=== PATIENT | male | born 1965 | race Caucasian/White ===

== ENCOUNTER 2016-12-10 18:39 | Observation (INO) | payer SELFPAY ==
--- NOTE | 2016-12-10 18:51 | EDM.PDOC ---
<Brittani Wang - Last Filed: 12/10/16 20:53> ED HPI GENERAL MEDICAL PROBLEM - General Chief Complaint: Chest Pain Stated Complaint: CHEST PAIN Time Seen by Provider: 12/10/16 18:48 Source of Information: Reports: Patient History Limitations: Reports: No Limitations - History of Present Illness INITIAL COMMENTS - FREE TEXT/NARRATIVE: HISTORY AND PHYSICAL: []51-year-old presenting with chest pain History of Present Illness: []Patient relates to having fallen down stairs 3 days ago and complaining of low back pain right hip pain Chest pain started 3 days ago Patient was hospitalized 10 years ago with a "bleeding ulcer" he relates having hiccups for the last 4 days and has not been able to eat Patient has been out of his lisinopril for several days and his girlfriend is on the same medication so she gave him her medication. Review of Systems: As per history of present illness and below otherwise all systems reviewed and negative. Past medical history: As per history of present illness and as reviewed below otherwise noncontributory. Surgical history: As per history of present illness and as reviewed below otherwise noncontributory. Social history: No reported history of drug or alcohol abuse. Family history: As per history of present illness and as reviewed below otherwise noncontributory. Physical exam: Alert and oriented man, denies any loss of consciousness from his fall. Answering questions in full sentences HEENT: Atraumatic, normocehpalic, pupils reactive, negative for conjunctival pallor or scleral icterus, mucous membranes moist, throat clear, neck supple, nontender, trachea midline. Lungs: Clear to auscultation, breath sounds equal bilaterally, chest tender multiple small areas of ecchymosis are present across his chest. Heart: S1S2, regular, negative for clicks, rubs, or JVD. Abdomen: Soft, nondistended, tender increased on his epigastric area. Negative for masses or hepatossplenmegaly. Negative for costovertebral tenderness. Pelvis: Stable nontender. Genitourinary: Deferred. Rectal: Deferred Extremities: Atraumatic, negative for cords or calf pain. Neurovascular unremarkable. Neuro: Awake, alert, oriented. Cranial nerves II through XII unremarkable. Cerebellum unremarkable. Motor and sensory unremarkable throughout. Exam nonfocal. Blood pressure was improved with the Nitrostat that was given Abdominal pain improved with the GI cocktail No acute fractures were noted/ small pulmonary nodules that look to be not significant/will need to be reevaluated at some point for stability Discussed case with Dr. Su who is agreeable for observation. We'll place on telemetry rule out cardiac involvement for chest pain. Diagnostics: [cbc cmp ua ekg troponin amylase and lipase CTA chest CT abdomen and pelvis] Therapeutics: [nitrostat asa] Morphine Impression: [chest pain- resolved Diverticulosis without acute diverticulitis Abdominal pain fatty infiltration of his liver Nonspecific pulmonary nodules ] Plan: []refer for observation Definitive disposition and diagnosis as appropriate pending reevaluation and review of above. Onset: Sudden Duration: Day(s): (3 days for chest pain fell down stairs (15-20) 5 days ago.) Location: Reports: Chest chest Pain Score (Numeric/FACES): 8 - Related Data Allergies Allergy/AdvReac Type Severity Reaction Status Date / Time No Known Allergies Allergy Verified 12/10/16 18:43 Home Meds: Home Meds ALPRAZolam [Alprazolam ER] 1 mg PO BID 12/10/16 [History] Lisinopril/Hydrochlorothiazide [Lisinopril-Hctz 20-25 mg Tab] 1 tab PO DAILY 01/18 [History] ED ROS GENERAL - Review of Systems Review Of Systems: ROS reveals no pertinent complaints other than HPI. ED EXAM, GENERAL - Physical Exam Exam: See Below (see dictation) Course - Vital Signs Last Recorded V/S: Last Vital Signs Temp 36.6 C 12/10/16 21:00 Pulse 83 12/10/16 21:00 Resp 18 12/10/16 21:00 BP 144/86 H 12/10/16 21:00 Pulse Ox 99 12/10/16 21:00 - Orders/Labs/Meds Orders: Active Orders 24 hr Category Date Time Status Patient Status [ADT] Stat ADT 12/10/16 21:04 Active Cardiac Monitoring [RC] . DIRECTED Care 12/10/16 18:57 Active EKG Documentation Completion [RC] STAT Care 12/10/16 18:57 Active EKG Documentation Completion [RC] STAT Care 12/10/16 19:14 Active Oxygen Therapy [RC] ASDIRECTED Care 12/10/16 18:57 Active Pulse Oximetry [RC] ASDIRECTED Care 12/10/16 18:57 Active Abdomen Pelvis w Cont [CT] Stat Exams 12/10/16 19:25 Taken Ang Chest [CT] Stat Exams 12/10/16 19:25 Taken Chest 1V Frontal [CR] Stat Exams 12/10/16 18:45 Taken Pantoprazole [ProTONIX IV] 80 mg Med 12/10/16 20:45 Active Sodium Chloride 0.9% [Normal Saline] 100 ml IV .Continuous Sodium Chloride 0.9% [Saline Flush] Med 12/10/16 18:57 Active 10 ml FLUSH ASDIRECTED PRN Sodium Chloride 0.9% [Saline Flush] Med 12/10/16 18:57 Active 2.5 ml FLUSH ASDIRECTED PRN Saline Lock Insert [OM.PC] Stat Oth 12/10/16 18:57 Ordered Medication Orders Pantoprazole Sodium 80 mg/ (Sodium Chloride) 100 mls @ 10 mls/hr IV .Continuous COLLEEN Last Admin: 12/10/16 21:03 Dose: 10 mls/hr Sodium Chloride (Saline Flush) 10 ml FLUSH ASDIRECTED PRN PRN Reason: Keep Vein Open Last Admin: 12/10/16 18:50 Dose: 10 ml Sodium Chloride (Saline Flush) 2.5 ml FLUSH ASDIRECTED PRN PRN Reason: Keep Vein Open Last Admin: 12/10/16 18:51 Dose: 2.5 ml Labs: Laboratory Tests 12/10/16 12/10/16 12/10/16 Range/Units 18:50 18:50 18:50 WBC 11.18 H (4.0-11.0) K/uL RBC 4.83 (4.50-5.90) M/uL Hgb 15.9 (13.0-17.0) g/dL Hct 45.3 (38.0-50.0) % MCV 93.8 (80.0-98.0) fL MCH 32.9 H (27.0-32.0) pg MCHC 35.1 (31.0-37.0) g/dL RDW Std Deviation 43.0 (28.0-62.0) fl RDW Coeff of Joseline 13 (11.0-15.0) % Plt Count 197 (150-400) K/uL MPV 10.60 (7.40-12.00) fL Neut % (Auto) 79.8 (48.0-80.0) % Lymph % (Auto) 13.6 L (16.0-40.0) % Amelia % (Auto) 6.4 (0.0-15.0) % Eos % (Auto) 0.0 (0.0-7.0) % Baso % (Auto) 0.2 (0.0-1.5) % Neut # (Auto) 8.9 H (1.4-5.7) K/uL Lymph # (Auto) 1.5 (0.6-2.4) K/uL Amelia # (Auto) 0.7 (0.0-0.8) K/uL Eos # (Auto) 0.0 (0.0-0.7) K/uL Baso # (Auto) 0.0 (0.0-0.1) K/uL Nucleated RBC % 0.0 /100WBC Nucleated RBCs # 0 K/uL INR 1.05 (0.86-1.11) Sodium 135 L (136-146) mmol/L Potassium 3.3 L (3.5-5.1) mmol/L Chloride 95 L (98-110) mmol/L Carbon Dioxide 24 (21-31) mmol/L BUN 20 (6.0-23.0) mg/dL Creatinine 1.0 (0.6-1.5) mg/dL Est Cr Clr Drug Dosing 93.08 mL/min Estimated GFR (MDRD) > 60.0 ml/min Glucose 113 H (60-110) mg/dL Calcium 9.7 (8.8-10.8) mg/dL Total Bilirubin 2.0 H (0.1-1.5) mg/dL AST 96 H (5-40) IU/L ALT 135 H (8-54) IU/L Alkaline Phosphatase 76 (40-150) Troponin I (0.0-0.29) NG/ML Total Protein 7.4 (6.0-8.0) g/dL Albumin 4.1 (3.5-5.0) g/dL Globulin 3.3 (2.0-3.5) g/dL Albumin/Globulin Ratio 1.2 L (1.3-2.8) Amylase (10-90) U/L Lipase (7-80) U/L Urine Color Urine Appearance Urine pH (5.0-8.0) Ur Specific Savage (1.001-1.035) Urine Protein (NEGATIVE) mg/dL Urine Glucose (UA) (NEGATIVE) mg/dL Urine Ketones (NEGATIVE) mg/dL Urine Occult Blood (NEGATIVE) Urine Nitrite (NEGATIVE) Urine Bilirubin (NEGATIVE) Urine Ictotest Urine Urobilinogen (<2.0) EU/dL Ur Leukocyte Esterase (NEGATIVE) Urine RBC (0-2/HPF) Urine WBC (0-5/HPF) Ur Epithelial Cells (NONE-FEW) Urine Bacteria (NEGATIVE) 12/10/16 12/10/16 12/10/16 Range/Units 18:50 18:50 20:10 WBC (4.0-11.0) K/uL RBC (4.50-5.90) M/uL Hgb (13.0-17.0) g/dL Hct (38.0-50.0) % MCV (80.0-98.0) fL MCH (27.0-32.0) pg MCHC (31.0-37.0) g/dL RDW Std Deviation (28.0-62.0) fl RDW Coeff of Joseline (11.0-15.0) % Plt Count (150-400) K/uL MPV (7.40-12.00) fL Neut % (Auto) (48.0-80.0) % Lymph % (Auto) (16.0-40.0) % Amelia % (Auto) (0.0-15.0) % Eos % (Auto) (0.0-7.0) % Baso % (Auto) (0.0-1.5) % Neut # (Auto) (1.4-5.7) K/uL Lymph # (Auto) (0.6-2.4) K/uL Amelia # (Auto) (0.0-0.8) K/uL Eos # (Auto) (0.0-0.7) K/uL Baso # (Auto) (0.0-0.1) K/uL Nucleated RBC % /100WBC Nucleated RBCs # K/uL INR (0.86-1.11) Sodium (136-146) mmol/L Potassium (3.5-5.1) mmol/L Chloride (98-110) mmol/L Carbon Dioxide (21-31) mmol/L BUN (6.0-23.0) mg/dL Creatinine (0.6-1.5) mg/dL Est Cr Clr Drug Dosing mL/min Estimated GFR (MDRD) ml/min Glucose (60-110) mg/dL Calcium (8.8-10.8) mg/dL Total Bilirubin (0.1-1.5) mg/dL AST (5-40) IU/L ALT (8-54) IU/L Alkaline Phosphatase (40-150) Troponin I < 0.10 (0.0-0.29) NG/ML Total Protein (6.0-8.0) g/dL Albumin (3.5-5.0) g/dL Globulin (2.0-3.5) g/dL Albumin/Globulin Ratio (1.3-2.8) Amylase 28 (10-90) U/L Lipase 16 (7-80) U/L Urine Color DARK YELLOW Urine Appearance CLEAR Urine pH 7.0 (5.0-8.0) Ur Specific Savage 1.010 (1.001-1.035) Urine Protein NEGATIVE (NEGATIVE) mg/dL Urine Glucose (UA) NEGATIVE (NEGATIVE) mg/dL Urine Ketones 15 H (NEGATIVE) mg/dL Urine Occult Blood NEGATIVE (NEGATIVE) Urine Nitrite NEGATIVE (NEGATIVE) Urine Bilirubin SMALL H (NEGATIVE) Urine Ictotest NEGATIVE Urine Urobilinogen 0.2 (<2.0) EU/dL Ur Leukocyte Esterase NEGATIVE (NEGATIVE) Urine RBC 0-1 (0-2/HPF) Urine WBC 1-3 (0-5/HPF) Ur Epithelial Cells OCCASIONAL (NONE-FEW) Urine Bacteria FEW (NEGATIVE) Meds: Medications Generic Name Dose Route Start Last Admin Trade Name Freq PRN Reason Stop Dose Admin Pantoprazole Sodium 80 mg/ 100 mls @ 10 mls/hr 12/10/16 20:45 12/10/16 21:03 Sodium Chloride IV 10 mls/hr .Continuous COLLEEN Administration Sodium Chloride 10 ml 12/10/16 18:57 12/10/16 18:50 Saline Flush FLUSH 10 ml ASDIRECTED PRN Administration Keep Vein Open Sodium Chloride 2.5 ml 12/10/16 18:57 12/10/16 18:51 Saline Flush FLUSH 2.5 ml ASDIRECTED PRN Administration Keep Vein Open Discontinued Medications Generic Name Dose Route Start Last Admin Trade Name Jesse PRN Reason Stop Dose Admin Aspirin 324 mg 12/10/16 18:57 12/10/16 19:01 Aspirin PO 12/10/16 18:58 324 mg ONETIME ONE Administration Al Hydroxide/Mg Hydroxide 15 0 ml 12/10/16 19:22 12/10/16 19:32 ml/ Metoclopramide HCl 5 mg/ PO 12/10/16 19:23 1 each Lidocaine HCl 5 ml ONETIME ONE Administration Al Hydroxide/Mg Hydroxide 15 0 ml 12/10/16 19:32 12/10/16 20:16 ml/ Lidocaine HCl 5 ml PO 12/10/16 19:33 Not Given ONETIME ONE Famotidine 20 mg 12/10/16 18:57 12/10/16 19:07 Pepcid IVPUSH 12/10/16 18:58 20 mg ONETIME ONE Administration Iopamidol 100 ml 12/10/16 19:57 12/10/16 19:58 Isovue-370 (76%) IVPUSH 12/10/16 19:58 100 ml ONETIME STA Administration Morphine Sulfate 2 mg 12/10/16 19:18 12/10/16 19:31 Morphine IV 12/10/16 19:19 2 mg ONETIME ONE Administration Nitroglycerin 0.4 mg 12/10/16 18:57 12/10/16 19:02 Nitrostat SL 12/10/16 18:58 0.4 mg ONETIME ONE Administration Nitroglycerin 0.4 mg 12/10/16 19:13 12/10/16 19:18 Nitrostat SL 12/10/16 19:24 0.4 mg Q5M PRN Administration Chest Pain Nitroglycerin 0.5 gm 12/10/16 20:44 12/10/16 20:56 Nitro-Bid 2% TOP 12/10/16 20:45 0.5 gm ONETIME ONE Administration Departure - Departure Time of Disposition: 21:07 Disposition: Refer to Observation Condition: Fair Clinical Impression: Atypical chest pain - My Orders Last 24 Hours: My Active Orders 12/10/16 20:45 Pantoprazole [ProTONIX IV] 80 mg Sodium Chloride 0.9% [Normal Saline] 100 ml IV .Continuous - Assessment/Plan Last 24 Hours: My Active Orders 12/10/16 20:45 Pantoprazole [ProTONIX IV] 80 mg Sodium Chloride 0.9% [Normal Saline] 100 ml IV .Continuous <Merary Yadav - Last Filed: 12/10/16 21:57> ED HPI GENERAL MEDICAL PROBLEM - History of Present Illness INITIAL COMMENTS - FREE TEXT/NARRATIVE: GI cocktail protonic nitro paste was all given. Patient did feel better after the GI cocktail. Case is discussed with our hospitalist Dr. Su accepted the patient. I did personally see and evaluate this patient with the nurse practitioner. Agree with the care plan.
[2016-12-10] MEDS ORDERED: Nitroglycerin 0.4 MG Tab.SL SL ONE (18:57)
[2016-12-10] MEDS ORDERED: Sodium Chloride 0.9% 10 ML Syringe FLUSH PRN (18:57)
[2016-12-10] MEDS ORDERED: Famotidine 20 MG/2 ML SDV IVPUSH ONE (18:57)
[2016-12-10] MEDS ORDERED: Sodium Chloride 0.9% 2.5 ML Syringe FLUSH PRN (18:57)
[2016-12-10] MEDS ORDERED: Aspirin 81 MG Tab.Chew PO ONE (18:57)
[2016-12-10] MEDS: Nitroglycerin 0.4 MG Tab.SL SL PRN ×2 (19:10→19:18)
[2016-12-10] MEDS ORDERED: Morphine 10 MG/ML Syringe IV ONE (19:18)
[2016-12-10 19:21] LABS: CHLORIDE,CL 95 mmol/L (98-110); SODIUM,NA 135 mmol/L (136-146)
[2016-12-10] MEDS ORDERED: Alum Hydrox/Mag Hydrox/Simeth 15 ML, Metoclopramide 5 MG, Lidocaine 2% 5 ML PO ONE ×3 (19:22)
[2016-12-10] MEDS ORDERED: Alum Hydrox/Mag Hydrox/Simeth 15 ML, Lidocaine 2% 5 ML PO ONE ×2 (19:32)
[2016-12-10] MEDS ORDERED: Iopamidol 755 Mg/ML 100 ML Bottle IVPUSH STA (19:57)
[2016-12-10] MEDS ORDERED: Nitroglycerin 2% Oint 1 GM UD Packet TOP ONE (20:44)
[2016-12-10] MEDS ORDERED: Pantoprazole 80 MG in Sodium Chloride 0.9% 100 ML IV SCH (20:45)
[2016-12-10] MEDS ORDERED: Potassium Chloride 20 MEQ Tab.ER PO ONE (21:55)
[2016-12-10] MEDS ORDERED: Morphine 2 MG/ML Syringe IVPUSH PRN (21:56)
[2016-12-10] MEDS ORDERED: Acetaminophen 325 MG Tab PO PRN (21:58)
[2016-12-10] MEDS ORDERED: Ondansetron 4 MG/2 ML SDV IVPUSH PRN (22:34)
[2016-12-10] MEDS: Sucralfate Suspension 1 GM/10 ML Cup PO SCH (22:48)
[2016-12-10] MEDS: Sodium Chloride 0.9% 1,000 ML IV SCH (23:36)
[2016-12-11] MEDS: Sucralfate Suspension 1 GM/10 ML Cup PO SCH ×2 (03:52→09:57)
[2016-12-11] MEDS ORDERED: Alum Hydrox/Mag Hydrox/Simeth 15 ML, Lidocaine 2% 5 ML PO ONE ×2 (04:25)
[2016-12-11] MEDS ORDERED: Calcium Carbonate 500 MG Tab.Chew PO PRN (04:26)
[2016-12-11 07:32] LABS: CHLORIDE,CL 99 mmol/L (98-110); SODIUM,NA 137 mmol/L (136-146)
[2016-12-11 08:24] VITALS: BP 127/89
[2016-12-11] MEDS: Sodium Chloride 0.9% 1,000 ML IV SCH (08:43)
--- NOTE | 2016-12-11 11:20 | CT ---
EXAM DATE: 12/10/16 PATIENT'S AGE: 51 Patient: SALLY LEOS Facility: [place], [place] Site . Site : 1965 Study: CT Chest Angio [id number]/9/2017 8:01:47 PM Ordering Physician: Doctor Adair Final Report: INDICATION: CHEST PAIN, STERNAL AND ABDOMINAL PAIN. R/O PE TECHNIQUE: CT chest pulmonary angiogram acquired with IV contrast COMPARISON: None FINDINGS: Cardiovascular structures: Normal vascular enhancement of the pulmonary arteries , no sign of pulmonary embolism. Heart size is normal. No sign of aneurysm or dissection in the thoracic aorta. Mediastinum and salvatore: No mass or adenopathy. Lungs: No focal consolidation, pleural effusion, or pneumothorax. No obstructive lung disease changes. Nonspecific noncalcified 3 mm pulmonary nodule in the inferior aspect of the right upper lobe seen on series 405, image 47 additional nonspecific noncalcified 3 mm pulmonary nodule in the right lower lobe seen on series 45, image 59 Chest wall and axilla: No mass or adenopathy. Bones: Unremarkable. Upper abdomen: Diffuse fatty infiltration of the liver. IMPRESSION: 1. No evidence of pulmonary embolism. 2. No acute cardiopulmonary disease. 3. 2 nonspecific noncalcified pulmonary nodules as described above the largest measuring 3 mm. Recommend comparison with any prior cross-sectional imaging of the chest to evaluate for stability /chronicity and/or followup per Fleischner criteria. Dictated by Pratik Goyal MD @ 12/10/2016 8:14:59 PM Dictated by: Pratik Goyal MD @ 12/10/2016 20:15:07 (Electronic Signature) Report Signed by Proxy. [facility]
--- NOTE | 2016-12-11 11:20 | CR ---
EXAM DATE: 12/10/16 PATIENT'S AGE: 51 Patient: SALLY LEOS Facility: [place], [place] Site . Site : 1965 Study: XRay Chest [id number]/9/2017 7:01:33 PM Ordering Physician: Doctor Adair Final Report: INDICATION: chest pain, nausea TECHNIQUE: Chest 1 view COMPARISON: None FINDINGS: Cardiovascular and mediastinum: Heart size and vasculature are normal in caliber and appearance. Mediastinum is within normal limits. Lungs and pleural space: No focal consolidation. No sign of pleural effusion. No pneumothorax. Bones and soft tissues: No significant findings. IMPRESSION: No acute cardiopulmonary disease. Dictated by Pratik Goyal MD @ 12/10/2016 7:14:41 PM Dictated by: Pratik Goyal MD @ 12/10/2016 19:14:54 (Electronic Signature) Report Signed by Proxy. [facility]riti
--- NOTE | 2016-12-11 11:21 | CT ---
EXAM DATE: 12/10/16 PATIENT'S AGE: 51 Patient: SALLY LEOS Facility: [place], [place] Site . Site : 1965 Study: CT Abdomen/Pelvis W JUAN [id number]/9/2017 8:07:32 PM Ordering Physician: Doctor Adair Final Report: INDICATION: Abdominal pain. TECHNIQUE: CT abdomen and pelvis acquired with i.v. 100 mL Isovue 370. Coronal and sagittal reformats were obtained. COMPARISON: None FINDINGS: Lower chest: Unremarkable. Liver: Extensive fatty infiltration of liver. No irregularity of liver capsule to indicate cirrhosis. No focal liver lesions or abdominal ascites. Spleen: Unremarkable. Pancreas: Unremarkable. Gallbladder and bile ducts: Gallbladder is surgically absent. Kidneys: Unremarkable. No kidney or ureteral stones and no hydronephrosis seen. Small bilateral renal cysts. Adrenal glands: Unremarkable. GI tract: Loops of bowel are normal in caliber. Mild degree of colonic diverticulosis with no evidence of acute diverticulitis. Terminal ileum and appendix unremarkable. Vascular: Calcified plaque involving the abdominal aorta without aneurysmal dilatation. Origins of the celiac artery and SMA are patent. Lymph nodes: Unremarkable. Miscellaneous: Unremarkable. No pneumoperitoneum is seen. No significant ascites is noted. Pelvic Organs: Unremarkable. Bones: Unremarkable for age. IMPRESSION: 1. Fatty infiltration of liver. 2. Diverticulosis without acute diverticulitis, free fluid, or free air. 3. Normal appendix. Dictated by Noman Smith MD @ 12/10/2016 8:15:34 PM Dictated by: Noman Smith MD @ 12/10/2016 20:15:43 (Electronic Signature) Report Signed by Proxy. [facility]
--- NOTE | 2016-12-11 19:56 | PCM.HP ---
H&P History of Present Illness - General Date of Service: 12/11/16 Source of Information: Patient History Limitations: Reports: No Limitations - History of Present Illness Initial Comments - Free Text/Narative: History of presenting illness: Magaly states that he started to have chest pain about 3 days ago status post a fall that he had. The fall initially resulted in him having back pain and hip pain. However, the chest pain started to develop and given his hypertensive history and the quality of chest pain the decision was made to admit the patient. He had chest pain that was substernal in nature achy and as such acute coronary syndrome needs to be ruled out. He does have a past medical history of a bleeding ulcer as well. As well he's been having hiccups for the last 5 days in which he has not been able to eat. Onset of Symptoms: Reports: Gradual chest Pain Score (Numeric/FACES): 7 - Related Data Allergies/Adverse Reactions: Allergies Allergy/AdvReac Type Severity Reaction Status Date / Time No Known Allergies Allergy Verified 12/10/16 18:43 Home Medications: Home Meds ALPRAZolam [Alprazolam ER] 1 mg PO BID #14 tab.er.24h 12/11/16 [Rx] Lisinopril/Hydrochlorothiazide [Lisinopril-Hctz 20-25 mg Tab] 1 tab PO DAILY # 30 tablet 12/11/16 [Rx] Metoclopramide HCl [Reglan] 10 mg PO Q8HR #14 tablet 12/11/16 [Rx] Pantoprazole Sodium [Protonix] 40 mg PO DAILY #30 tablet.dr 12/11/16 [Rx] Potassium Chloride 20 meq PO DAILY #14 tablet.er 12/11/16 [Rx] Past Medical History HEENT History: Reports: Allergic Rhinitis, Hard of Hearing Cardiovascular History: Reports: Hypertension Respiratory History: Reports: None Gastrointestinal History: Reports: GERD, GI Bleed Genitourinary History: Reports: None Musculoskeletal History: Reports: None Neurological History: Reports: None Psychiatric History: Reports: None Endocrine/Metabolic History: Reports: None Hematologic History: Reports: None Immunologic History: Reports: None Oncologic (Cancer) History: Reports: None Dermatologic History: Reports: None - Past Surgical History HEENT Surgical History: Reports: None Cardiovascular Surgical History: Reports: None Respiratory Surgical History: Reports: None GI Surgical History: Reports: Cholecystectomy Male Surgical History: Reports: None Endocrine Surgical History: Reports: None Neurological Surgical History: Reports: None Musculoskeletal Surgical History: Reports: None Oncologic Surgical History: Reports: None Social & Family History - Family History Family Medical History: Noncontributory - Tobacco Use Smoking Status *Q: Current Every Day Smoker Years of Tobacco use: 20 Packs/Tins Daily: 0.5 Second Hand Smoke Exposure: Yes - Caffeine Use Caffeine Use: Reports: Coffee, Soda - Recreational Drug Use Recreational Drug Use: No H&P Review of Systems - Review of Systems: Review Of Systems: ROS reveals no pertinent complaints other than HPI. Exam - Exam Exam: See Below - Vital Signs Vital Signs: Last Vital Signs Temp 36.6 C 12/11/16 08:00 Pulse 66 12/11/16 08:00 Resp 19 12/11/16 08:00 BP 127/89 12/11/16 08:00 Pulse Ox 99 12/11/16 04:00 Weight: 88 kg - Exam General: Alert, Oriented HEENT: Conjunctiva Clear Neck: Supple, Trachea Midline Lungs: Clear to Auscultation, Normal Respiratory Effort Cardiovascular: Regular Rate, Regular Rhythm, Other (Achy chest pain left sternal border as well as posterior lateral area of chest partially reproducible.) Extremities: Normal Inspection, Normal Range of Motion, No Pedal Edema, Normal Capillary Refill Neuro Extensive - Mental Status: Alert, Oriented x3 - Patient Data Lab Results Last 24 hrs: Laboratory Results - last 24 hr 12/11/16 12/11/16 12/11/16 Range/Units 00:45 06:58 06:58 WBC 8.61 (4.0-11.0) K/uL RBC 4.16 L (4.50-5.90) M/uL Hgb 13.4 (13.0-17.0) g/dL Hct 39.5 (38.0-50.0) % MCV 95.0 (80.0-98.0) fL MCH 32.2 H (27.0-32.0) pg MCHC 33.9 (31.0-37.0) g/dL RDW Std Deviation 43.5 (28.0-62.0) fl RDW Coeff of Joseline 13 (11.0-15.0) % Plt Count 164 (150-400) K/uL MPV 10.40 (7.40-12.00) fL Neut % (Auto) 52.6 (48.0-80.0) % Lymph % (Auto) 39.8 (16.0-40.0) % Rich % (Auto) 5.7 (0.0-15.0) % Eos % (Auto) 1.4 (0.0-7.0) % Baso % (Auto) 0.5 (0.0-1.5) % Neut # (Auto) 4.5 (1.4-5.7) K/uL Lymph # (Auto) 3.4 H (0.6-2.4) K/uL Rich # (Auto) 0.5 (0.0-0.8) K/uL Eos # (Auto) 0.1 (0.0-0.7) K/uL Baso # (Auto) 0.0 (0.0-0.1) K/uL Nucleated RBC % 0.0 /100WBC Nucleated RBCs # 0 K/uL Sodium 137 (136-146) mmol/L Potassium 3.2 L (3.5-5.1) mmol/L Chloride 99 (98-110) mmol/L Carbon Dioxide 29 (21-31) mmol/L BUN 21 (6.0-23.0) mg/dL Creatinine 0.8 (0.6-1.5) mg/dL Est Cr Clr Drug Dosing 116.35 mL/min Estimated GFR (MDRD) > 60.0 ml/min Glucose 80 (60-110) mg/dL Calcium 8.5 L (8.8-10.8) mg/dL Total Bilirubin 1.8 H (0.1-1.5) mg/dL AST 63 H (5-40) IU/L ALT 100 H (8-54) IU/L Alkaline Phosphatase 58 (40-150) Troponin I < 0.10 (0.0-0.29) NG/ML Total Protein 5.9 L (6.0-8.0) g/dL Albumin 3.3 L (3.5-5.0) g/dL Globulin 2.6 (2.0-3.5) g/dL Albumin/Globulin Ratio 1.3 (1.3-2.8) 12/11/16 Range/Units 06:58 WBC (4.0-11.0) K/uL RBC (4.50-5.90) M/uL Hgb (13.0-17.0) g/dL Hct (38.0-50.0) % MCV (80.0-98.0) fL MCH (27.0-32.0) pg MCHC (31.0-37.0) g/dL RDW Std Deviation (28.0-62.0) fl RDW Coeff of Joseline (11.0-15.0) % Plt Count (150-400) K/uL MPV (7.40-12.00) fL Neut % (Auto) (48.0-80.0) % Lymph % (Auto) (16.0-40.0) % Rich % (Auto) (0.0-15.0) % Eos % (Auto) (0.0-7.0) % Baso % (Auto) (0.0-1.5) % Neut # (Auto) (1.4-5.7) K/uL Lymph # (Auto) (0.6-2.4) K/uL Rich # (Auto) (0.0-0.8) K/uL Eos # (Auto) (0.0-0.7) K/uL Baso # (Auto) (0.0-0.1) K/uL Nucleated RBC % /100WBC Nucleated RBCs # K/uL Sodium (136-146) mmol/L Potassium (3.5-5.1) mmol/L Chloride (98-110) mmol/L Carbon Dioxide (21-31) mmol/L BUN (6.0-23.0) mg/dL Creatinine (0.6-1.5) mg/dL Est Cr Clr Drug Dosing mL/min Estimated GFR (MDRD) ml/min Glucose (60-110) mg/dL Calcium (8.8-10.8) mg/dL Total Bilirubin (0.1-1.5) mg/dL AST (5-40) IU/L ALT (8-54) IU/L Alkaline Phosphatase (40-150) Troponin I < 0.10 (0.0-0.29) NG/ML Total Protein (6.0-8.0) g/dL Albumin (3.5-5.0) g/dL Globulin (2.0-3.5) g/dL Albumin/Globulin Ratio (1.3-2.8) Result Diagrams: 12/11/16 06:58 12/11/16 06:58 *Q Meaningful Use (ADM) - VTE *Q VTE Criteria *Q: - Stroke *Q Stroke Criteria *Q: - AMI *Q AMI Criteria *Q: - Problem List (1) Hiccups SNOMED Code(s): 22920480 ICD Code: R06.6 - HICCOUGH Status: Acute (2) GERD (gastroesophageal reflux disease) SNOMED Code(s): 528265714 ICD Code: K21.9 - GASTRO-ESOPHAGEAL REFLUX DISEASE WITHOUT ESOPHAGITIS Status: Acute (3) Atypical chest pain SNOMED Code(s): 412428404 ICD Code: R07.89 - OTHER CHEST PAIN Status: Acute Priority: High Problem List Initiated/Reviewed/Updated: Yes Orders Last 24hrs: Active Orders 24 hr Category Date Time Status Communication Order [RC] ROUTINE Care 12/10/16 21:54 Active Discontinue Telemetry Monitoring [Cardiac Monitoring Care 12/11/16 13:12 Active Discontinue] [RC] Click To Edit Ready for Discharge [RC] PER UNIT ROUTINE Care 12/11/16 11:10 Active Telemetry Monitoring [Cardiac Monitoring] [RC] Q8H Care 12/10/16 21:57 Active Assessment/Plan Comment:: #1. Anterior chest pain achy in nature along with posterior lateral chest wall pain etiologies include trauma versus gastroesophageal reflux disease versus costochondritis versus acute coronary syndrome. #2. History of gastroesophageal reflux disease #3. History of hypertension on lisinopril #4. 5 day history of hiccups Discharge Summary Date of admission: 12/11/2016 Date of discharge: 12/11/2016 Admitting diagnosis: #1. Anterior chest pain achy in nature along with posterior lateral chest wall pain etiologies include trauma versus gastroesophageal reflux disease versus costochondritis is versus acute coronary syndrome #2. GERD #3. Hypertensive on lisinopril #4. 5 day history of hiccups #5. Discharge diagnoses: #1. Chest pain likely etiology gastroesophageal reflux disease with a mixture of trauma secondary to fall acute coronary syndrome ruled out #2. Gastroesophageal reflux disease #3 . Hypertension on lisinopril #4. Five-day history of pickups #5. Consultations: None Procedures: None Hospitalization course: Patient was admitted for acute coronary syndrome rule rule out. Patient troponins were trended 3 which were negative patient's EKG did not show any ST segment changes patient's BMP was within normal limits. Patient was put on fluids and pain control for chest pain. Patient after tropes 3 was discharged secondary to ACS being ruled out. Patient was told to follow- up with primary care physician for evaluation of gastroesophageal reflux disease. Patient was also given a prescription for a exercise stress test to rule out stable angina. Disposition on discharge: Home. Condition on discharge: Stable, afebrile, normotensive, tropes negative 3, able to take appropriate by mouth, no nausea vomiting diarrhea constipation. Discharge medications: Lisinopril, Reglan, Protonix Follow-up instructions: Outpatient cardiac exercise stress test, PCP follow-up in one week
== END 2016-12-11 12:35 | disposition home or self-care (01) ==
LOC: MW.ED 18:39 → MW.MS 21:16
PROVIDERS: ADMIT Internal Medicine; ATTEND Internal Medicine
DX: R07.89 Other chest pain (principal); R06.6 Hiccough; K21.9 Gastro-esophageal reflux disease without esophagitis; I10 Essential (primary) hypertension; K76.0 Fatty (change of) liver, not elsewhere classified; K57.90 Diverticulosis of intestine, part unspecified, without perforation or abscess without bleeding; R91.8 Other nonspecific abnormal finding of lung field; F17.210 Nicotine dependence, cigarettes, uncomplicated; Z90.49 Acquired absence of other specified parts of digestive tract; Z79.899 Other long term (current) drug therapy
CPT/HCPCS: 36415; 71010; 71275; 74177; 80053; 81001; 82150; 83690; 84484; 85025; 85610; 93005; 96361; 96374; 96375; 96376; 99285; A9270; C9113; G0378; J2270; J7030; J7040; Q9967

== ENCOUNTER 2017-02-03 01:36 | Emergency (ER) | payer SELFPAY ==
[2017-02-03] MEDS ORDERED: Thiamine 200 MG/2 ML MDV IVPUSH ONE (01:43)
[2017-02-03] MEDS ORDERED: LORazepam 2 MG/ML MDV IVPUSH ONE ×2 (01:43→02:17)
[2017-02-03] MEDS ORDERED: Ondansetron 4 MG/2 ML SDV IVPUSH ONE ×2 (01:45→03:41)
--- NOTE | 2017-02-03 01:46 | EDM.PDOCBH ---
ED HPI GENERAL MEDICAL PROBLEM - General Chief Complaint: Drug or Alcohol Abuse Stated Complaint: ALCOHOL DT Time Seen by Provider: 02/03/17 01:43 Source of Information: Reports: Patient History Limitations: Reports: No Limitations - History of Present Illness INITIAL COMMENTS - FREE TEXT/NARRATIVE: HISTORY AND PHYSICAL: History of present illness: [52-year-old male with a history of hypertension, high cholesterol, and alcoholism now brought in by for evaluation of alcohol withdrawal. Patient has been drinking very heavily on a daily basis for more than a week. He stopped around noon yesterday. Today he is experiencing severe withdrawal symptoms. He is vomiting and is tremulous. Patient was vomiting and then noticed some blood streaks in his vomitus at one point however that has now resolved. Patient denies chest pain or shortness of breath. No recent head injury denies headache or stiff neck. He does have abdominal soreness which hurts when he retches. His abdomen was not hurting before he started vomiting. Patient states he has previously had pancreatitis. No fevers chills sweats or shaking chills. No prehospital seizure and no confusion or altered mental status per . Review of systems: As per history of present illness and below otherwise all systems reviewed and negative. Past medical history: As per history of present illness and as reviewed below otherwise noncontributory. Surgical history: As per history of present illness and as reviewed below otherwise noncontributory. Social history: No reported history of drug or alcohol abuse. Family history: As per history of present illness and as reviewed below otherwise noncontributory. Physical exam: Ill-appearing 52-year-old male in mild distress with repeated retching. Normocephalic/atraumatic dry mucous membrane supple neck clear lungs mild tachycardia nontender abdomen no CVA tenderness normal extremities with a nonfocal neurologic exam HEENT: Atraumatic, normocephalic, pupils reactive, negative for conjunctival pallor or scleral icterus, mucous membranes dry, throat clear, neck supple, nontender, trachea midline. Lungs: Clear to auscultation, breath sounds equal bilaterally, chest nontender. Heart: S1S2, regular, negative for clicks, rubs, or JVD. Abdomen: Soft, nondistended, mild diffuse tenderness. Negative for masses or hepatosplenomegaly. Negative for costovertebral tenderness. Pelvis: Stable nontender. Genitourinary: Deferred. Rectal: Deferred. Extremities: Atraumatic, negative for cords or calf pain. Neurovascular unremarkable. Neuro: Awake, alert, oriented. Cranial nerves grossly unremarkable. Patient mildly tremulous. Motor and sensory unremarkable throughout. Exam nonfocal. Diagnostics: [EKG with normal sinus rhythm at 133 normal axis no STEMI, nonspecific ST and T- wave findings, interpreted by me] Therapeutics: [IV fluids thiamine Ativan, D5 normal saline] Impression: [] Plan: [Signs and symptoms consistent with severe alcohol withdrawal syndrome. In ED patient had witnessed seizure with complete and spontaneous resolution of postictal state. Patient had 2 more brief seizures that lasted seconds each also with resolving postictal state to mental status baseline. No clinical evidence of status epilepticus. Patient does have a mild metabolic acidosis with CO2 of 18. Extensive hydration in progress. Patient clinically improved with multiple doses of Ativan, hydration, and D5 normal saline drip. Case discussed with rooming house keeper regarding bed availability and she stated that there are no inpatient ICU beds. Case discussed with Dr. Pena at [facility] in [place]. Dr. Pena states they're on diversion is unable to accept a transfer.. Case discussed with Dr. Alli Gan and cleo at our [facility] in [place]. Both aware of the history and findings accept patient in transfer to their ICU for inpatient care. Patient clinically improved. He has no evidence of delirium or Warnicke Korsakoff syndrome clinically. Patient stability improved upon arrival of fixed wing EMS transport team. Intubation not clinically indicated on reevaluation just prior to discharge. Adequately stable for transfer in current condition. Critical care 75 minutes Definitive disposition and diagnosis as appropriate pending reevaluation and review of above. Epigastric Pain Score (Numeric/FACES): 10 - Related Data Allergies Allergy/AdvReac Type Severity Reaction Status Date / Time No Known Allergies Allergy Verified 02/03/17 01:54 Home Meds: Home Meds Metoclopramide HCl [Reglan] 10 mg PO Q8HR #14 tablet 12/11/16 [Rx] Pantoprazole Sodium [Protonix] 40 mg PO DAILY #30 tablet. 12/11/16 [Rx] Potassium Chloride 20 meq PO DAILY #14 tablet.er 12/11/16 [Rx] ALPRAZolam [Alprazolam ER] 1 mg PO DAILY 02/03/17 [History] Naproxen Sodium [Aleve] 220 mg PO ASDIRECTED PRN 02/03/17 [History] Ranitidine [Zantac] 150 mg PO DAILY 02/03/17 [History] Spironolactone [Aldactone] 25 mg PO DAILY 02/03/17 [History] Thiamine Mononitrate [Vitamin B-1] 100 mg PO DAILY 02/03/17 [History] Past Medical History HEENT History: Reports: Allergic Rhinitis, Hard of Hearing Cardiovascular History: Reports: Hypertension Respiratory History: Reports: None Gastrointestinal History: Reports: GERD, GI Bleed Genitourinary History: Reports: None Musculoskeletal History: Reports: None Neurological History: Reports: None Psychiatric History: Reports: None Endocrine/Metabolic History: Reports: None Hematologic History: Reports: None Immunologic History: Reports: None Oncologic (Cancer) History: Reports: None Dermatologic History: Reports: None - Past Surgical History HEENT Surgical History: Reports: None Cardiovascular Surgical History: Reports: None Respiratory Surgical History: Reports: None GI Surgical History: Reports: Cholecystectomy Male Surgical History: Reports: None Endocrine Surgical History: Reports: None Neurological Surgical History: Reports: None Musculoskeletal Surgical History: Reports: None Oncologic Surgical History: Reports: None Social & Family History - Family History Family Medical History: Noncontributory - Tobacco Use Smoking Status *Q: Current Every Day Smoker Years of Tobacco use: 20 Packs/Tins Daily: 0.5 Second Hand Smoke Exposure: Yes - Caffeine Use Caffeine Use: Reports: Coffee, Soda - Recreational Drug Use Recreational Drug Use: No ED ROS GENERAL - Review of Systems Review Of Systems: See Below (History of present illness) ED EXAM, BEHAVIORAL HEALTH - Physical Exam Exam: See Below (History of present illness) COURSE, BEHAVIORAL HEALTH COMP - Course Vital Signs: Last Vital Signs Temp 36.1 C 02/03/17 01:46 Pulse 147 H 02/03/17 01:46 Resp 20 02/03/17 01:46 BP 198/96 H 02/03/17 01:46 Pulse Ox 98 02/03/17 01:46 Orders, Labs, Meds: Active Orders 24 hr Category Date Time Status EKG Documentation Completion [RC] STAT Care 02/03/17 01:43 Active Peripheral IV Care [RC] . DIRECTED Care 02/03/17 01:43 Active DRUG SCREEN, URINE [URCHEM] Stat Lab 02/03/17 01:46 Uncollected Dextrose 5%-0.9% NaCl [Dextrose 5%-Normal Saline] 1,000 Med 02/03/17 03:30 Active ml IV ASDIRECTED LORazepam [Ativan] Med 02/03/17 02:33 Active 1 mg IVPUSH Q4H PRN Peripheral IV Insertion Adult [OM.PC] Stat Oth 02/03/17 01:43 Ordered Medication Orders Dextrose/Sodium Chloride (Dextrose 5%-Normal Saline) 1,000 mls @ 999 mls/hr IV ASDIRECTED COLLEEN Last Admin: 02/03/17 03:50 Dose: 999 mls/hr Lorazepam (Ativan) 1 mg IVPUSH Q4H PRN PRN Reason: Seizures Last Admin: 02/03/17 03:46 Dose: 1 mg Admin: 02/03/17 03:14 Dose: 1 mg Laboratory Tests 02/03/17 02/03/17 02/03/17 Range/Units 02:05 02:46 02:46 WBC 8.70 (4.0-11.0) K/uL RBC 4.40 L (4.50-5.90) M/uL Hgb 14.5 (13.0-17.0) g/dL Hct 41.6 (38.0-50.0) % MCV 94.5 (80.0-98.0) fL MCH 33.0 H (27.0-32.0) pg MCHC 34.9 (31.0-37.0) g/dL RDW Std Deviation 47.6 (28.0-62.0) fl RDW Coeff of Joseline 14 (11.0-15.0) % Plt Count 284 (150-400) K/uL MPV 8.90 (7.40-12.00) fL Neut % (Auto) 90.7 H (48.0-80.0) % Lymph % (Auto) 5.7 L (16.0-40.0) % Iron % (Auto) 3.3 (0.0-15.0) % Eos % (Auto) 0.0 (0.0-7.0) % Baso % (Auto) 0.3 (0.0-1.5) % Neut # (Auto) 7.9 H (1.4-5.7) K/uL Lymph # (Auto) 0.5 L (0.6-2.4) K/uL Iron # (Auto) 0.3 (0.0-0.8) K/uL Eos # (Auto) 0.0 (0.0-0.7) K/uL Baso # (Auto) 0.0 (0.0-0.1) K/uL Nucleated RBC % 0.0 /100WBC Nucleated RBCs # 0 K/uL Sodium 143 (136-146) mmol/L Potassium 4.0 (3.5-5.1) mmol/L Chloride 102 (98-110) mmol/L Carbon Dioxide 18 L (21-31) mmol/L BUN 15 (6.0-23.0) mg/dL Creatinine 1.2 (0.6-1.5) mg/dL Est Cr Clr Drug Dosing 76.69 mL/min Estimated GFR (MDRD) > 60.0 ml/min Glucose 133 H (60-110) mg/dL Calcium 9.3 (8.8-10.8) mg/dL Magnesium 1.0 L (1.5-2.3) mEq/L Total Bilirubin 0.8 (0.1-1.5) mg/dL AST 53 H (5-40) IU/L ALT 58 H (8-54) IU/L Alkaline Phosphatase 76 (40-150) Total Protein 7.6 (6.0-8.0) g/dL Albumin 4.3 (3.5-5.0) g/dL Globulin 3.3 (2.0-3.5) g/dL Albumin/Globulin Ratio 1.3 (1.3-2.8) Amylase 34 (10-90) U/L Lipase 17 (7-80) U/L Salicylates < 5.0 (0-20) mg/dL Acetaminophen < 3.0 ug/mL Medications Generic Name Dose Route Start Last Admin Trade Name Freq PRN Reason Stop Dose Admin Dextrose/Sodium Chloride 1,000 mls @ 999 mls/hr 02/03/17 03:30 02/03/17 03:50 Dextrose 5%-Normal Saline IV 999 mls/hr ASDIRECTED COLLEEN Administration Lorazepam 1 mg 02/03/17 02:33 02/03/17 03:46 Ativan IVPUSH 1 mg Q4H PRN Administration Seizures Discontinued Medications Generic Name Dose Route Start Last Admin Trade Name Vladislavq PRN Reason Stop Dose Admin Sodium Chloride 2,000 mls @ 999 mls/hr 02/03/17 01:43 02/03/17 02:55 Normal Saline IV 02/03/17 03:43 999 mls/hr .Bolus ONE Administration Pantoprazole Sodium 40 mg/ 10 mls @ 300 mls/hr 02/03/17 02:42 02/03/17 02:51 Sodium Chloride IVPUSH 02/03/17 02:43 300 mls/hr NOW ONE Administration Sodium Chloride 1,000 mls @ 999 mls/hr 02/03/17 03:01 02/03/17 03:46 Normal Saline IV 02/03/17 04:01 999 mls/hr .Bolus ONE Administration Lorazepam 1 mg 02/03/17 01:43 02/03/17 02:06 Ativan IVPUSH 02/03/17 01:44 1 mg ONETIME ONE Administration Lorazepam 2 mg 02/03/17 02:17 02/03/17 02:24 Ativan IVPUSH 02/03/17 02:18 2 mg ONETIME ONE Administration Ondansetron HCl 4 mg 02/03/17 01:45 02/03/17 02:07 Zofran IVPUSH 02/03/17 01:46 4 mg ONETIME ONE Administration Ondansetron HCl 4 mg 02/03/17 03:41 02/03/17 03:46 Zofran IVPUSH 02/03/17 03:42 4 mg ONETIME ONE Administration Thiamine HCl 100 mg 02/03/17 01:43 02/03/17 02:06 Vitamin B-1 IVPUSH 02/03/17 01:44 100 mg ONETIME ONE Administration Departure - Departure Time of Disposition: 03:30 Disposition: DC/Tfer to Acute Hospital 02 Condition: Serious Clinical Impression: Alcohol withdrawal syndrome, Alcohol withdrawal seizure, Metabolic acidosis, Dehydration, Tachycardia - Discharge Information - My Orders Last 24 Hours: My Active Orders 02/03/17 01:43 EKG Documentation Completion [RC] STAT Peripheral IV Care [RC] . DIRECTED Peripheral IV Insertion Adult [OM.PC] Stat 02/03/17 01:46 DRUG SCREEN, URINE [URCHEM] Stat 02/03/17 02:33 LORazepam [Ativan] 1 mg IVPUSH Q4H PRN 02/03/17 03:30 Dextrose 5%-0.9% NaCl [Dextrose 5%-Normal Saline] 1,000 ml IV ASDIRECTED - Assessment/Plan Last 24 Hours: My Active Orders 02/03/17 01:43 EKG Documentation Completion [RC] STAT Peripheral IV Care [RC] . DIRECTED Peripheral IV Insertion Adult [OM.PC] Stat 02/03/17 01:46 DRUG SCREEN, URINE [URCHEM] Stat 02/03/17 02:33 LORazepam [Ativan] 1 mg IVPUSH Q4H PRN 02/03/17 03:30 Dextrose 5%-0.9% NaCl [Dextrose 5%-Normal Saline] 1,000 ml IV ASDIRECTED
[2017-02-03] MEDS: Sodium Chloride 0.9% 2,000 ML IV ONE ×2 (02:11→02:55)
[2017-02-03 02:40] LABS: CHLORIDE,CL 102 mmol/L (98-110); SODIUM,NA 143 mmol/L (136-146)
[2017-02-03] MEDS ORDERED: Pantoprazole 40 MG in Sodium Chloride 0.9% 10 ML IVPUSH ONE (02:42)
[2017-02-03] MEDS ORDERED: Sodium Chloride 0.9% 1,000 ML IV ONE (03:01)
[2017-02-03] MEDS: LORazepam 2 MG/ML MDV IVPUSH PRN ×2 (03:14→03:46)
[2017-02-03] MEDS ORDERED: Dextrose 5%-0.9% NaCl 1,000 ML IV SCH (03:30)
[2017-02-03 03:51] LABS: ACETAMINOPHEN < 3.0 ug/mL
[2017-02-03] MEDS ORDERED: Sodium Chloride 0.9% 250 ML IV SCH (04:46)
[2017-02-03] MEDS ORDERED: Sodium Chloride 0.9% 1,000 ML IV SCH (04:57)
[2017-02-03 05:18] VITALS: BP 211/103
== END 2017-02-03 05:22 ==
LOC: MW.ED 01:36
DX: F10.239 Alcohol dependence with withdrawal, unspecified (principal); R56.9 Unspecified convulsions; E87.2 Acidosis; E86.0 Dehydration; R00.0 Tachycardia, unspecified; I10 Essential (primary) hypertension; K21.9 Gastro-esophageal reflux disease without esophagitis; F17.210 Nicotine dependence, cigarettes, uncomplicated; Z90.49 Acquired absence of other specified parts of digestive tract; Z79.899 Other long term (current) drug therapy
CPT/HCPCS: 36415; 80053; 82150; 83690; 83735; 85025; 93005; 96361; 96365; 96366; 96374; 96375; 96376; 99285; C9113; G0480; J2060; J2405; J3411; J7040; J7042; 99284